=== PATIENT | female | born 1985 | race Caucasian/White ===

== ENCOUNTER 2016-12-05 14:36 | Inpatient (IN) | payer OTHER ==
[2016-12-05] MEDS ORDERED: MINERAL OIL 25 ML BOT ONE (16:14)
[2016-12-05] MEDS ORDERED: OXYTOCIN 10 UNITS/ML VIAL ONE (16:14)
[2016-12-05] MEDS ORDERED: PUMP TUBING ONE (16:14)
[2016-12-05] MEDS ORDERED: LIDOCAINE 1% (PRES FREE) 30 ML VIAL ONE (16:14)
[2016-12-05] MEDS ORDERED: LIDOCAINE Viscous 2% 15 ML UDCUP ONE (16:14)
[2016-12-05] MEDS ORDERED: OXYTOCIN IN LR 0 ML IV ONE (16:14)
[2016-12-05 16:48] VITALS: BMI 35.5
[2016-12-05] MEDS ORDERED: LIDOCAINE 1% (PRES FREE) 30 ML VIAL SUB-Q ONE (17:13)
[2016-12-05] MEDS ORDERED: LANOLIN 50 APPLIC/7G TUBE TP PRN ×2 (17:45→18:17)
[2016-12-05] MEDS ORDERED: BENZOCAINE/MENTHOL 60 APPLIC/BOT TP PRN ×2 (17:45→18:17)
[2016-12-05] MEDS ORDERED: HYDROCODONE/ACETAMINOPHEN 5/325MG TABLET PO PRN (17:45)
[2016-12-05] MEDS ORDERED: DOCUSATE SODIUM 100 MG CAPSULE PO PRN ×2 (17:45→18:17)
[2016-12-05] MEDS ORDERED: ACETAMINOPHEN 325 MG TABLET PO PRN ×2 (17:45→18:17)
[2016-12-05] MEDS ORDERED: IBUPROFEN 800 MG TABLET PO SCH (17:45)
[2016-12-05] MEDS ORDERED: CALCIUM CARBONATE 500 MG TAB.CHEW PO PRN ×2 (17:45→18:17)
--- NOTE | 2016-12-05 18:22 | PCMAN ---
OB Admission Note - History : 4 Term: 1 : 0 Abortions (S&E): 2 Livin EDC:: 12/06/16 Gestational Age (weeks): 39 Days (#/7): 6 Admit Cervical Dilation:: 4 Admit Cervical Effacement (%):: 60 Admit Station:: -3 Admit Presentaton:: vertex Membrane Status: Intact Labor Onset (Date): 12/05/16 Labor Onset (Time): 12:30 Contractions: Yes Contraction Frequency:: 2-4 Heart Rate:: 130 (moderate variability, accels present, decels absent) Status:: Category 1 EFW:: 9.25lbs Summary of Course:: Onset of care at 11wks x14 visits. SILVER by 1st trimester ultrasound at [facility]. course complicated by anemia (received IV iron infusions), daily marijuana use for fibromyalgia & chronic back pain and nausea/ vomiting (UDS on 11/15/16 negative, admit UDS deferred), persistent tachycardia ( cardiology referral done and Holter monitor report never received from cardiology), persistent nausea and vomiting (went to [facility] weekly for IV hydration and antiemetic), anxiety (declined meds and counseling), and social issues (single mother, FOB same as 1st child and reports him as manipulative but denies current DV, he wants paternity testing). OB history includes a rapid 1st labor of a 9lb 4oz . GBS negative. Pre- BMI=28.6. - Labs Blood Type: A (+) positive Hct/Hgb:: 11.5 Rubella Status: Immune GBS Status: Negative Abnormal Labs: Urine Toxicology Positive Other Labs:: Declined UDS at new OB; admitted to regular marijuana use for fibromyalgia pain and N/V UDS on 11/15/16 negative for all - Review of Systems Reports regular painful contractions and some bloody show. Denies SROM or decreased movement. - Physical Exam General: Afebrile Psych/Mental Status: Mood/Affect Appropriate, Judgment/Insight Intact Lungs: Clear to Auscultation Bilaterally Cardiovascular: Regular Rate and Rhythm Genitourinary: Normal Female Genitalia Skin: Normal Color - Problems (1) Active labor at term Status: AcuteAssessment/Plan: A: 31yo IUP at 39w6d Active labor at term Fetus Category 1 GBS negative EFW=9.25lbs, hx of 9lb4oz Anemia-resolved with IV iron infusions Maternal anxiety Tachycardia of unknown origin in Marijuana use in 1-2nd trimesters, clean UDS on 11/15/16 Complex social issues-denies current DV Chronic pain from fibromylagia and spondylolisthesis P: Admit to [facility] Intermittent auscultation per policy Defer RPR, saline lock, & active management of 3rd stage Defer admit UDS, as clean UDS was obtained on 11/15/16 Use hydrotherapy for pain relief-plans unmedicated delivery Expectant management Shoulder dystocia precautions for delivery Anticipate Will need social work consult due to anxiety and social issues
--- NOTE | 2016-12-05 18:30 | PCMDEL ---
Delivery Note - Labor 1st stage (hr/min):: 4h15m 2nd stage (hr/min):: 3m 3rd stage (hr/min):: 15m Total (hr/min):: 4h33m Pushed (hr/min):: 3m - Delivery Delivery (Date): 12/05/16 Delivery (Time): 16:48 Infant Gender: Female Weight: 9 lb 8 oz Length: 1 ft 9.5 in Presentation: Cephalic Position: OA Umbilical Cord: 3 Vessel Delayed Cord Clamping:: > 3 min 1 Minute Total: 9 5 Minute Total: 9 Placenta:: intact, shultze EBL:: 500ml Perineum:: 1st degree Suture:: 3-0 vicryl Anesthesia/Meds:: 1% lidocaine Length ROM:: 1h13m Comments:: FHTs Category 1 throughout 1st and 2nd stage. Pt pushed in sidelying. Achieved an of a viable female (Apgars 9/9) over a 1st degree perineal laceration. Shoulders delivered easily and infant was placed [id number] with mom. DCC x15m per pt's request, placenta delivered intact and shultze. Pt to take placenta home with her for placental encapsulation. 1st degree perineal laceration repaired until 1% lidocaine with 1 stitch. Fundus firm with massage. LNJ=269mH. Baby to breast within 45min.
[2016-12-05] MEDS: IBUPROFEN 800 MG TABLET PO SCH (19:18)
[2016-12-06] MEDS: HYDROCODONE/ACETAMINOPHEN 5/325MG TABLET PO PRN ×5 (01:24→23:08)
[2016-12-06] MEDS: IBUPROFEN 800 MG TABLET PO SCH ×4 (04:23→19:28)
--- NOTE | 2016-12-06 09:54 | PDOC44 ---
- Subjective Day: 1 Maki is sitting up in bed and the baby. This has been going well. No concerns at this time, other than maybe a shallow latch. Taking Burghill for pain and this is helping. Has light lochia. Would like to go home tomorrow. Discharge pamphlet given but not thoroughly reviewed due to , and nurses in the room, and pt wanting to eat breakfast. Reports Flatus, Reports , Reports Lochia Light, Reports Tolerating Regular Diet - Objective Temp Pulse Resp BP Pulse Ox 97.6 F 88 16 104/52 12/06/16 08:49 12/06/16 08:49 12/06/16 08:49 12/06/16 08:49 Current Medications Generic Name Dose Route Start Last Admin Trade Name Freq PRN Reason Stop Dose Admin Acetaminophen 325 - 650 mg 12/05/16 18:17 Tylenol PO Q4H PRN Pain (Mild) Acetaminophen/Hydrocodone Bitart 1 - 2 tab 12/05/16 18:17 12/06/16 01:24 Burghill 5/325 PO 1 tab Q4H PRN Administration Pain (Moderate) Benzocaine/Menthol 1 applic 12/05/16 18:17 Dermoplast TP PRN PRN Patient Comfort Calcium Carbonate/Glycine 500 - 1,000 mg 12/05/16 18:17 Tums PO BID PRN Indigestion Docusate Sodium 100 mg 12/05/16 18:17 Colace PO DAILY PRN Comfort Emollient Ointment 1 applic 12/05/16 18:17 [id number] TP PRN PRN sore nipples Ibuprofen 800 mg 12/05/16 18:30 12/06/16 04:23 Motrin PO 800 mg Q6H MAGDA Administration Sodium Chloride 10 ml 12/06/16 01:00 12/06/16 04:38 Normal Saline 10ml Flush IV Not Given Q8HR MAGDA Sodium Chloride 10 ml 12/05/16 18:17 Normal Saline 10ml Flush IV PRN PRN IV Flush - Physical Exam General: Afebrile Psych/Mental Status: Mood/Affect Appropriate Neurological: Alert Cardiovascular: Regular Rate and Rhythm Breast: Soft, Skin intact, Nipples Intact Fundus: Firm Genitourinary: Normal Female Genitalia Lochia: Light Rectal Exam: Deferred Extremities: Full ROM Skin: Normal Color, Warm, Dry, Intact - Problems:Assessment/Plan (1) Normal course Status: AcuteAssessment/Plan: A/ Day 1 s/p vaginal Breast feeding P/ D/C home tomorrow with baby consult PRN Disposition: Anticipate DC Home Tomorrow
[2016-12-07] MEDS: IBUPROFEN 800 MG TABLET PO SCH ×2 (02:04→07:54)
[2016-12-07 10:47] VITALS: BP 122/77
--- NOTE | 2016-12-07 13:02 | PDOC39B ---
Hospital Course: ADMIT DATE: 12/05/16 DISCHARGE DATE: 12/07/16 ADMISSION DIAGNOSES: Active Labor PROCEDURES: HISTORY OF PRESENT ILLNESS: 31 year old G4 T1 L1 at 39 weeks 6 days presenting with active labor. HOSPITAL COURSE: The patient progressed to complete and had an uncoplicated vaginal . By day of discharge the patient is stable, well and ready to go home. - Physical Exam Vital Signs: Temp Pulse Resp BP Pulse Ox 97.9 F 88 16 122/77 12/07/16 07:55 12/07/16 07:55 12/07/16 07:55 12/07/16 07:55 General: Afebrile Psych/Mental Status: Mood/Affect Appropriate, Bonding Well Breast: Soft, Nipples Intact, Other (minimal bruising on left) Fundus: Firm, Midline, At Umbilicus Genitourinary: Normal Female Genitalia Lochia: Light - Discharge Diagnosis (1) care following vaginal delivery Status: AcuteAssessment/Plan: A: Stable P: Discharge home. - Discharge Plan Condition: Stable Disposition: Home Additional Instructions: Midwifery 'After the ' handout given to patient. Discharge Medications: Chau's nipple cream Follow-Up: Diaz Mcintyre CNM [Certified Nurse Dispatcher Service Or Work] - In 2 weeks
[2016-12-07] MEDS ORDERED: BETAMETHASONE VAL 0.1% TP PRN (14:42)
[2016-12-07] MEDS ORDERED: MUPIROCIN CALCIUM 2% OINT 22 APPLIC/22 G TUBE TP SCH (15:00)
== END 2016-12-07 13:26 | disposition home or self-care (01) | DRG 775 ==
LOC: FBCOUT 14:36 → FBC 14:42 → FBCOUT 15:48 → FBC 15:49
PROVIDERS: ADMIT Registered Nurse; ATTEND Registered Nurse
PROC: 0HQ9XZZ Repair Perineum Skin, External Approach (ICD-10-PCS; principal; 2016-12-05)
PROC: 10E0XZZ Delivery of Products of Conception, External Approach (ICD-10-PCS; 2016-12-05)
DX: O70.0 First degree perineal laceration during delivery (principal); O99.324 Drug use complicating childbirth; O99.02 Anemia complicating childbirth; D64.9 Anemia, unspecified; Z3A.39 39 weeks gestation of pregnancy; Z37.0 Single live birth; F12.90 Cannabis use, unspecified, uncomplicated; O75.89 Other specified complications of labor and delivery; M79.7 Fibromyalgia; M54.9 Dorsalgia, unspecified; O99.344 Other mental disorders complicating childbirth; F41.9 Anxiety disorder, unspecified

== ENCOUNTER 2016-12-13 11:13 | Outpatient (CLI) | payer OTHER | END 2016-12-13 11:14 | disposition home or self-care (01) | LOC: BABIESSH 11:13 | PROVIDERS: ATTEND Registered Nurse | DX: Z39.1 Encounter for care and examination of lactating mother (principal) ==